=== PATIENT | female | born 1955 | race Caucasian/White ===

== ENCOUNTER 2019-04-16 | Emergency (ER) | payer MEDICARE, OTHER ==
[2019-04-16] MEDS ORDERED: TRAMADOL HCL50 MG PO (13:11)
[2019-04-16] MEDS ORDERED: NIFEDIPINE ER30 M1 PO (13:12)
[2019-04-16] MEDS ORDERED: ROPINIROLE HY0.25 MG PO (13:13)
[2019-04-16] MEDS ORDERED: ANASTROZOLE1 MG PO (13:13)
[2019-04-16] MEDS ORDERED: CALCIUM 600+D PO (13:17)
[2019-04-16] MEDS ORDERED: MEDDOSEPAK PO (13:59)
[2019-04-16] MEDS ORDERED: FLONASE AL50 MCG/ACT NAB (13:59)
== END 2019-04-16 14:13 | disposition home or self-care (01) ==
DX: B34.9 Viral infection, unspecified (principal); I10 Essential (primary) hypertension